=== PATIENT | male | born 1935 | race Caucasian/White ===

== ENCOUNTER 2016-08-28 09:14 | Day surgery (SDC) | payer MEDICARE, OTHER ==
--- NOTE | 2016-07-25 16:14 | PCM.ANEPRE ---
Anesthesia Pre-Op Review Reason for Review: CARDIAC HX-CABG,AVR,AORTIC ROOT RPR COMORBIDITIES Anesthesia Recommendations: Proceed with Procedure Additional Comments Pt appears optimized from chart review. No further diagnostic studies or interventions appear warranted prior to proposed procedure in this challenging patient. Chart Reviewed by: Alex Loza MD, MD July 25, 2016 16:14
[~2016-08-28] VITALS: Ht 180.3 cm; Wt 105.6 kg
[2016-08-28] VITALS (7 sets, daily range): BP systolic 110–135; BP diastolic 43–80; PULSE 50–77; RESP 15–20; O2SAT 96–98
[~2016-08-28 09:14] MED LIST: ASCO500C6 PO; COLC0.6T52 PO; CYAN10008 PO; DICL100G8 TOPICAL; FEBU40TA PO; FURO-128 PO; LOSA25TA21 PO; LOV100 SUBQ; Lactated Ringer's 1,000 ML IV ONE; METO50TA3 PO; MULT-1018 PO; OXYC5TAB72 PO; SIMV40TA5 PO; TAMS0.4C98 PO; VIT1TABL83 PO; WARF5TAB7 PO; levoFLOXacin Inj 500 MG in IV Premix 1 EACH IV ONE
[2016-08-28] MEDS ORDERED: Propofol 10 mg/mL 20 mL Inj ONE (09:15)
[2016-08-28] MEDS ORDERED: fentaNYL-PF 50 mCg/mL 2 mL Inj ONE (09:15)
[2016-08-28] MEDS ORDERED: Rocuronium 10 mg/mL 5 mL Inj ONE (09:15)
[2016-08-28] MEDS ORDERED: Ketamine 10 mg/mL 20 mL Inj ONE (09:15)
[2016-08-28] MEDS ORDERED: Glycopyrrolate 0.2 MG/ML 1mL Inj ONE (09:15)
[2016-08-28] MEDS ORDERED: Phenylephrine 10,000 mCg/mL Inj ONE (09:15)
[2016-08-28 10:29] LABS: INR 1.03 ratio
--- NOTE | 2016-08-28 10:57 | PCM.HPANE ---
Patient Data Surgeon Admitting Provider: Attending Provider:Nish Garcia MD Primary Care Physician:William Martins MD Other Provider:Karlo Alonzo Anesthesia Reason for Visit Right Upper Quadrant Pain Ht/WT & BMI Height (Feet): 5 Height (Inches): 11 Weight (Kilograms): 105.6 Body Mass Index 32.00 Allergies Coded Allergies: Cephalosporins (Verified Allergy, Severe, hives, 07/23/16) NSAIDS (Non-Steroidal Anti-Inflamma (Verified Adverse Reaction, Severe, R/ T CHRONIC RENAL INSUFFICIENCY STAGE 4, 07/23/16) Past Anesthesia History Anesthesia History: Denies:: Abnormal Airway, Anesthesia Reactions, Malignant Hyperthermia Diabetes History Hx Diabetes?: Yes Type of Diabetes: Type II Glycemic Control: Diet Controlled Current Bedside Blood Glucose: 96 MRSA MRSA: No Medications Blood Thinner: Coumadin, Lovenox Hypertension Medication: Yes (LASIX,LOSARTAN) Home Meds Incl Beta Jane: Yes (metoprolol) Date Beta Jane Taken: Aug 28, 2016 Time Beta Jane Taken: 08 Reported Medications Diclofenac Gel (Voltaren Gel)100 Gm Tube1 Applic TOPICAL QID #1 TUBE 1% 07/23/16 oxyCODONE 5 Mg Tablet5 Mg PO Q6H PRN For Pain Ref 0 07/23/16 Colchicine (Colcrys)0.6 Mg Tablet0.6 Mg PO DAILY PRN GOUT 07/23/16 Cyanocobalamin (Vitamin B-12) (Vitamin B-12)1,000 Mcg Tablet1,000 Mcg PO DAILY 07/23/16 Ascorbic Acid (Vitamin C)500 Mg Capsule.er500 Mg PO TID 07/23/16 Vit B Comp/C/FA/Iron/Vit E (Vitamin B Complex Tablet)1 Each Tablet1 Each PO DAILY 07/23/16 Multivitamin (Multi Vitamin Daily)1 Each Tablet1 Each PO DAILY 30 Days Ref 0 07/23/16 Febuxostat (Uloric)40 Mg Tnbrgm72 Mg PO DAILY 07/23/16 Losartan Potassium 25 Mg Jkizca27 Mg PO DAILY 07/23/16 Metoprolol Tartrate 50 Mg Jhqpts60 Mg PO BID 30 Days Ref 0 07/23/16 Furosemide (Lasix)40 Mg Bzoeit62 Mg PO DAILY 30 Days Ref 0 07/23/16 Tamsulosin (Flomax)0.4 Mg Capsule0.4 Mg PO DAILY Ref 0 07/23/16 Simvastatin 40 Mg Vvkalr94 Mg PO HS 30 Days Ref 0 07/23/16 Enoxaparin (Lovenox)100 Mg/Ml Elyvuyr375 Mg SUBQ Q12 Ref 0 LAST DOSE TO BE AM 08/27/16 07/23/16 Warfarin Sodium 5 Mg Tablet5 Mg PO DAILY 30 Days Ref 0 07/23/16 History History of ENT Problems?: Yes HEENT History: Positive for:: Cataracts ("beginings of") Denies:: Abnormal Airway Denture Type: None Teeth Condition: Within Normal Limits Hx of Heart Problems?: Yes Cardiovascular History: Positive for:: 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 HTN) Pacemaker Hx of Respiratory Problem?: Yes Respiratory History: Positive for:: Cough (RECENT COLD 07/18/16) Dyspnea (ADAN) Denies:: Use of C-PAP Machine Hx Neurologic Problems?: Yes Neurological History: Positive for:: CVA (1989',2004) Denies:: Dementia Other Neurological Pertinent: C/OF NEUROPATHY,PARESTHESIAS LE Hx of GI Problems?: Yes Other GI Pertinent History: S/P APPY Hx of Problems?: Yes Genitourinary History: Denies:: HX of Hemodialysis (CHRONIC RENAL INSUFFICIENCY STAGE 4-REFERRED TO NEPHROLOGY) Kidney Stones HX of Peritoneal Dialysis: No Male Hx: Positive for:: Prostate Problems (S/P PROSTATIC SEED IMPLANT FOR CA) Denies:: Scrotal Mass Testicular Surgery Skin History: Positive for:: Pressure Ulcers (S/P FOOT SURGERY W/ TOE AMPUTATION-OSTEOMYELITIS) Denies:: History Skin Disorders? Hx Musculoskeletal Problems?: Yes Hx of Psycho/Social Problems?: No Hx Surgeries?: Yes (PROSTATE SEEDS,FOOT RPR/TOE AMP,FISTULA IN ANO,APPY.HEART CATHS/STENTS X2,C) Hx Any Other Health Problems?: Yes Other History: Positive for:: Cancer (PROSTATE) Hospitalization (CARDIAC) Denies:: Endocrine Disease Thyroid Disease History Blood Transfusions: Denies:: Blood Transfuse Reaction Blood Transfusions Hx Diabetes: YesBedside Blood Glucose: 96 Hx Alcohol Use: NoHx Substance Use: NoHave You Smoked inLast 12 mo: No Stop/Bang Treated for Sleep Apnea?: No Do You Have a CPAP Machine?: No S-Snoring: Do You Snore Loudly: No T-Tired: feel tired, fatigued: No O-Obsered: Observed not breath: No P-Blood Pressure: treated: Yes B- Body Mass Index > 35 kg/m2: No A- Age over 50: Yes N- Neck Large Circumference: Yes G- Gender Male: Yes OUMOU Total Score: 4 OUMOU Risk Assessment: High Risk, =/>3 Yes Risk Assessment Category Category 1A: Patient has history of documented sleep apnea, and HAS NOT received any narcotic, sedative or anesthesia administration during this stay. Category 1B: Patient has history of documented sleep apnea, and HAS received any narcotic , sedative or anesthesia administration during this stay Category 2: Patient has SUSPECTED Obstructive Sleep Apnea, and HAS received any narcotic , sedative or anesthesia administration during this stay. Category 3: Patient has SUSPECTED Obstructive Sleep Apnea and HAS NOT received narcotic, sedative or anesthesia administration during this stay. Category 4: Outpatient in Procedural Areas with known sleep apnea or who screen positive for High Risk via the STOP/BANG questionnaire. Exam Exam Vital Signs Vital Signs Date Time Temp Pulse Resp B/P Pulse Ox O2 Delivery O2 Flow Rate FiO2 08/28/16 09:46 35.7 63 20 128/77 98 Room Air General Appearance: Oriented X3 HEENT/AIRWAY: MP 2 Lungs: Normal Air Movement Heart: Regular Rate/Rhythm Meds/Labs/Diagnostics Admission Meds Current Medications Lactated Ringer's (Lr) 1,000 ml @ 10 mls/hr Q24H ONCE IV Last administered on 08/28/16t 09:33; Start 08/28/16 at 05:00; Stop 08/29/16 at 04:59 Bedside Blood Glucose: 96 Labs Test 08/28/16 10:00 Prothrombin Time 11.0sec (8.1-12.5) Prothromb Time International Ratio 1.03ratio Plan Impression Patient chart reviewed, patient interviewed and anesthestic plan with risks, benefits, and alternatives discussed, and informed consent obtained. ASA Physical Status: ASA4 Life Threatening Anesthetic Plan: GA Bene/Risks/Altern/Consents: Yes HP Complete Prior to Induction: Yes Jesus De La Fuente MD Aug 28, 2016 10:57
[2016-08-28] MEDS ORDERED: Iopamidol-300 50 mL Inj IV ONE (11:13)
[2016-08-28] MEDS ORDERED: Bupivacaine-MPF 0.5% 30 mL Inj INJ ONE (11:13)
[2016-08-28] MEDS ORDERED: Lactated Ringer's 1,000 ML IV SCH (13:07)
[2016-08-28] MEDS ORDERED: Lactated Ringer's 500 ML IV PRN (13:07)
--- NOTE | 2016-08-28 13:08 | DRSVH ---
PROCEDURE: X-RAY OPERATIVE CHOLANGIOGRAM ([id number]) INDICATIONS: RIGHT UPPER QUADRANT PAIN COMPARISON: None. FINDINGS: Biliary ducts: The surgeon injected contrast into the biliary ducts after cannulation of the cystic duct stump. Visualized intra- and extrahepatic bile ducts are normal in caliber, without strictures. No intraluminal filling defects to suggest retained ductal stones or sludge. No evidence for iatro genic ductal injury. Duodenum: Contrast flows promptly through the sphincter of Oddi into the duodenum, which appears nor mal in caliber. IMPRESSION: Normal operative cholangiogram. Dictated by: Slick Herman M.D. on 08/28/2016 at 13:06 Approved by: Slick Herman M.D. on 08/28/2016 at 13:06
[2016-08-28] MEDS ORDERED: Ondansetron 2 mg/mL 2 mL Inj IVPUSH PRN (13:10)
[2016-08-28] MEDS ORDERED: Phenylephrine 10,000 mCg/mL Inj IVPUSH PRN (13:10)
[2016-08-28] MEDS ORDERED: MetoCLOpramide 5 mg/mL 2 mL Inj IVPUSH PRN (13:10)
[2016-08-28] MEDS ORDERED: fentaNYL-PF 50 mCg/mL 2 mL Inj IVPUSH PRN (13:10)
[2016-08-28] MEDS ORDERED: Dexamethasone 4 mg/mL Inj IVPUSH PRN (13:10)
[2016-08-28] MEDS ORDERED: HYDROmorphone 1 mg/mL Inj IVPUSH PRN (13:10)
[2016-08-28] MEDS ORDERED: Labetalol 5 mg/mL 4 mL Inj IV PRN (13:10)
[2016-08-28] MEDS ORDERED: EPHEDrine Sulfate 50 mg/mL Inj IVPUSH PRN (13:10)
[2016-08-28] MEDS ORDERED: OXYC-474 PO (13:46)
[2016-08-28] MEDS ORDERED: POLY17PO6 PO (13:46)
--- NOTE | 2016-08-28 13:49 | PCM.SURGPO ---
Immediate Operative Note Date of Surgery: Aug 28, 2016 Pre Operative Diagnosis Cholelithiasis Post Operative Diagnosis Cholelithiasis Procedure Laparoscopic Cholecystectomy with cholangiogram Surgeon and Inspector Repairer Surgeon: Nish Garcia MD Assistants: Hank Dupont, FANTASMA, Slick Travis PAC Findings Normal Cholangiogram Complications There were no periprocedural complications identified. Surgical Specimen Removed: Yes Specimen sent to Pathology: Yes Anesthetic Administered: GA Grafts, Implants: None Output, Estimated Blood Loss: 20 Blood Admin during surgery: No Attending Statement [employer] Consultant listed was medically necessary for the successful completion of the case Nish Garcia MD Aug 28, 2016 13:49
--- NOTE | 2016-08-28 14:16 | PCM.ANEP1 ---
Post Anesthesia PACU Phase 1 Assessment Vital Signs Vital Signs Date Time Temp Pulse Resp B/P Pulse Ox O2 Delivery O2 Flow Rate FiO2 08/28/16 13:55 36.3 50 16 115/43 96 Room Air 08/28/16 13:50 70 16 110/54 97 Nasal Cannula 2 08/28/16 13:40 68 16 127/56 97 Nasal Cannula 2 08/28/16 13:35 77 20 135/50 98 Simple Mask 10 08/28/16 13:30 36.4 74 18 130/80 98 Simple Mask 10 08/28/16 09:46 35.7 63 20 128/77 98 Room Air Anesthetic Administered: GA Level of Alertness: Awake, talking Pain: No Nausea or Vomiting: No CV Function & Hydration Stable: Yes Airway Device: Lungs: Normal Air Movement, Other PACU Phase 2 Assessment Patient Instructions Provided: N/A Jesus D eLa Fuente MD Aug 28, 2016 14:16
--- NOTE | 2016-08-29 15:22 | PATH ---
SURGICAL PATHOLOGY Attending Physician:Nish Garcia MD CASE STATUS: Signed Out PATIENT NAME: JULIA DAVENPORT PID: [id number] : 1935 DATE COLLECTED:08/28/2016 23:45 SPECIMEN: Gallbladder CLINICAL HISTORY: RIGHT UPPER QUADRANT PAIN 1). GALLBLADDER FINAL DIAGNOSIS: 1.GALLBLADDER: CHOLELITHIASIS WITH ASSOCIATED CHRONIC CHOLECYSTITIS. ICD10 K80.66 GROSS DESCRIPTION: The specimen is received in one formalin filled container labeled with the patient's name, sublabeled "gallbladder" and consists of a slightly opened 5.0 x 3.0 x 1.0 seem gallbladder. The serosa is smooth. The cystic duct is possibly identified. The wall is 0.2-0.4 CM in thickness. The mucosa is a dark green garcia in color. The lumen contains 6 green-black rough calculi which range in size from 0.3-0.8 CM in greatest dimension. 5 employment program representative sections are submitted in one cassette. 08/29/2016 [facility] MICRO DESCRIPTION: See diagnosis. ICD-9 CODES: CPT CODES: 1: 12848 Electronically Signed Out Alonzo Felix MD [facility] Pathology [facility] [address], [place] [address] Technical component performed at [facility], [facility] [address], [place], [address]
--- NOTE | 2016-08-29 15:36 | OP ---
[address] [address] OPERATIVE REPORT PATIENT: JULIA DAVENPORT : 1935 MR#: [id number] ADMIT: 08/28/2016 JOB ID: [id number] DATE OF SURGERY: 08/28/2016 PREOPERATIVE DIAGNOSIS(ES): Cholelithiasis. POSTOPERATIVE DIAGNOSIS(ES): Cholelithiasis. PROCEDURE PERFORMED: Laparoscopic cholecystectomy with intraoperative cholangiogram. SURGEON: Nish Garcia M.D. SELF PAY SPECIALIST: Avi Dupont PA-C and Slick Travis PA-C ESTIMATED BLOOD LOSS: 20 mL. COMPLICATIONS: None. CONDITION OF THE PATIENT: Stable. INDICATIONS: The patient is an 81-year-old gentleman who has known that he has had gallstones for a few years now. He has been having episodes of right upper abdominal discomfort every couple of months which last about a week. We discussed these symptoms with Dr. Martins which led to surgical consultation. I saw him in consultation and requested for him to get an EGD and a laparoscopic cholecystectomy while he is bridged with Lovenox, but he was ill from an upper respiratory illness and had to cancel those appointments and he re-scheduled to go ahead with a laparoscopic cholecystectomy with plans to have an EGD done if this does not help him. His preoperative INR today was normal and he has been holding Lovenox since yesterday. PROCEDURE DETAILS: He was placed in a supine position, underwent smooth induction of general anesthesia. Abdomen was prepped and draped in the usual sterile fashion. Surgical time-out was undertaken using safety checklist, and all were in agreement. I began by making a supraumbilical incision and entered the abdomen using open Sukhi technique. I then placed three 5 mm ports in the right upper quadrant and epigastrium and upsized the supraumbilical port to a 12 mm. We then placed the patient in reverse Trendelenburg position with right side up and retracted the gallbladder cephalad and to the right to proceed with the dissection. He had some difficulty with visualization given his sliver was stiff and he had quite a bit of intra-abdominal fat. I dissected the triangle of Calot anteriorly and posteriorly. We did encounter some bleeding between the gallbladder liver interface requiring coagulation. I then isolated the cystic artery and the duct and divided the cystic artery between clips and then clipped the cystic duct towards the specimen and obtained a cholangiogram. The cholangiogram was normal. I then clipped the cystic duct doubly on the patient's side and then divided the duct and dissected the rest of the gallbladder off the liver bed. After that during the dissection, I did get into the gallbladder spilling some bile but after we placed the gallbladder in the EndoCatch bag, I irrigated and suctioned out all the fluid and any debris. Afterwards I examined the liver bed for hemostasis and given his anticoagulation requirement postoperatively and the bed being a little oozy I used some FloSeal for additional hemostasis. After that we removed the EndoCatch bag with the gallbladder through the umbilical port site and closed the umbilical supraumbilical port site fascia with [id number] 0-Vicryl suture. The skin was reapproximated with 4-0 Monocryl. Steri-Strips and sterile dressing were applied. The patient was recovered from anesthesia and was taken to the recovery room in stable condition.
== END 2016-08-28 23:59 | disposition home or self-care (01) ==
LOC: SAS 09:14
PROVIDERS: ATTEND Student in an Organized Health Care Education/Training Program
DX: K80.10 Calculus of gallbladder with chronic cholecystitis without obstruction (principal); R10.11 Right upper quadrant pain; I12.9 Hypertensive chronic kidney disease with stage 1 through stage 4 chronic kidney disease, or unspecified chronic kidney disease; I50.22 Chronic systolic (congestive) heart failure; I44.7 Left bundle-branch block, unspecified; E78.5 Hyperlipidemia, unspecified; E11.22 Type 2 diabetes mellitus with diabetic chronic kidney disease; N18.4 Chronic kidney disease, stage 4 (severe); R06.09 Other forms of dyspnea; R91.1 Solitary pulmonary nodule; I48.2 Chronic atrial fibrillation; J98.4 Other disorders of lung; I25.2 Old myocardial infarction; Z86.73 Personal history of transient ischemic attack (TIA), and cerebral infarction without residual deficits; Z85.46 Personal history of malignant neoplasm of prostate; Z86.718 Personal history of other venous thrombosis and embolism; Z95.5 Presence of coronary angioplasty implant and graft; Z95.4 Presence of other heart-valve replacement; Z95.1 Presence of aortocoronary bypass graft; Z79.01 Long term (current) use of anticoagulants
CPT/HCPCS: 36415; 47563; 74300; 85610; 88304; J2370; J3010; J7120; Q9967